=== PATIENT | female | born 1965 | race Caucasian/White ===

== ENCOUNTER 2018-09-12 00:22 | Emergency (ER) | payer MEDICAID ==
[~2018-09-12] VITALS: Ht 147.3 cm; Wt 70.2 kg
[2018-09-12 00:27] VITALS: Ht 147.3 cm; Wt 70.2 kg
--- NOTE | 2018-09-12 03:22 | ERD ---
ER Documentation Chief Complaint Chief Complaint FACIAL LACERATIONS S/P FALL HPI 53-year-old female, presents emergency department, complaining of laceration of the chin after sustaining a ground-level fall approximately 1 hour prior to arrival. No loss of consciousness, no dental injuries, no tongue injury. The p atient denies headache, no blurred vision, no nausea or vomiting. ROS All systems reviewed and are negative except as per history of present illness. Allergies Allergies: Coded Allergies: No Known Allergy (Unverified , 09/12/18) PMhx/Soc Medical and Surgical Hx: pt denies Medical Hx, pt denies Surgical Hx Hx Alcohol Use: No Hx Substance Use: No Hx Tobacco Use: No Smoking Status: Never smoker FmHx Family History: No diabetes, No coronary disease Physical Exam Vitals Vital Signs Date Temp Pulse Resp B/P (MAP) Pulse Ox O2 O2 Flow FiO2 Time Delivery Rate 09/12/18 97.0 85 18 138/89 98 00:27 (105) Physical Exam Const: No acute distress Head: Atraumatic Eyes: Normal Conjunctiva ENT: Normal External Ears, Nose and Mouth. Neck: Full range of motion. No meningismus. Resp: Clear to auscultation bilaterally Cardio: Regular rate and rhythm, no murmurs Abd: Soft, non tender, non distended. Normal bowel sounds Skin: No petechiae or rashes Back: No midline or flank tenderness Ext: No cyanosis, or edema Neur: Awake and alert Psych: Normal Mood and Affect Results 24 hrs Current Medications Medications Dose Sig/Elsie Start Time Status Last (Trade) Ordered Route PRN Stop Time Admin Dose Reason Admin Lidocaine/ 50 ml ONCE ONCE 09/12/18 DC Epinephrine INJ 04:00 (Xylocaine 09/12/18 04:07 1%/ Epi (Mdv)) Lidocaine/ 20 ml ONCE ONCE 09/12/18 DC Epinephrine INJ 04:30 (Xylocaine 09/12/18 04:31 2%/ Epi (Mdv) 20 ml) Procedures/MDM Vital signs stable, the patient was evaluated for foreign body, open fracture, nerve/vascular/tendon injury. Neurovascular exam intact. Pertinent data: Procedure: Laceration repair The procedure was explained and consent obtained. Anesthesia: 1% lidocaine [with] epinephrine locally Location: [] Tendon/Joint/Nerves: No injury Foreign body: None detected after copious irrigation and exploration Technique: Simple Interrupted Sutures Complexity: No subcutaneous sutures/mucosal repair/edge excision Post Closure Length: [] cm The patient tolerated the procedure well without complications. clinical impression and possible complications like infection and a scar where discussed with [] who agreed with management. The patient is stable to be treated outpatient and will be discharged home with a Rx for [], some side effects of prescribed medications (headache, rash, nausea, vomiting, diarrhea, interactions with other medications) were reviewed. The patient was instructed to follow up with the primary care provider in the next 48h for wound check. If symptoms persist, worsen or new symptoms develop, then patient should return to the ED immediately. Stitches can be removed in days. Instructions explained and given directly by me to the patient with acknowledgment and demonstrated understanding. Disclaimer: Inadvertent spelling and grammatical errors are likely due to EHR/dictation software use and do not reflect on the overall quality of patient care. Also, please note that the electronic time recorded on this note does not necessarily reflect the actual time of the patient encounter. Departure Diagnosis: Primary Impression: Chin laceration Condition: Stable Patient Instructions: Laceration, Chin, Suture Or Tape Additional Instructions: Muchas joe por [facility] para sanchez servicio. Esperamos que en sanchez visita a la dl de emergencia sanchez problema medico haya sido solucionado y que se sienta mucho mejor. Para estar seguros que sanchez mejoria sigue en proceso, le pedimos el favor de hacer aby gladys de seguimiento medico con sanchez doctor primario en los proximos 2-4 sales. Lleve con usted estos documentos y las medicinas recetadas. Si artem sintomas empeoran, NO SE ESPERE, por favor regrese a dl de emergencia INMEDIATAMENTE. En mary lou que usted no tenga un mdico de atencin primaria: Llame al mdico o clnica comunitaria de referencia que aparece abajo nasrin las horas de consultorio para hacer aby gladys para que le vean. CLINICAS: [facility] [phone] [facility] [phone] [facility] [phone] [facility] [phone] [facility] [phone] [facility] [phone] IRAIDA ARRIOLA MD Sep 12, 2018 03:22
[2018-09-12] MEDS ORDERED: LIDOCAINE 1%/EPI (MDV) 50 ML INJ INJ ONE (04:00)
[2018-09-12] MEDS ORDERED: LIDOCAINE 2%/EPI (MDV) 20ML INJ INJ ONE (04:30)
[2018-09-12] MEDS ORDERED: IBUP-1542 PO (04:59)
[2018-09-12 05:12] VITALS: BP 141/89; PULSE 78; RESP 18
== END 2018-09-12 05:13 | disposition home or self-care (01) ==
LOC: FTE 00:22
DX: S01.81XA Laceration without foreign body of other part of head, initial encounter (principal); W18.39XA Other fall on same level, initial encounter; Y92.9 Unspecified place or not applicable
CPT/HCPCS: Z7502; Z7610; 99282